=== PATIENT | male | born 1970 | race African-American/Black ===

== ENCOUNTER 2017-07-19 06:16 | Inpatient (IN) ==
[2017-07-19] MEDS ORDERED: Aspirin 81 MG TAB.CHEW PO ONE (06:37)
[2017-07-19] MEDS: Nitroglycerin 0.4 MG TAB.SUBL SL ONE ×3 (06:41→07:08)
[2017-07-19 06:54] LABS: Basophils # 0.1 K/mcL (0.0-0.2); Basophils % 0.9 %; Eosinophils # 0.3 K/mcL (0.0-0.6); Eosinophils % 6.2 %; Hematocrit 43.7 % (37.5-50.1); Hemoglobin 14.3 g/dL (12.9-16.9); Immature Granulocytes % 0.2 % (0-4); Lymphocytes # 1.5 K/mcL (0.6-4.6); Lymphocytes % 26.5 %; Mean Corpuscular HGB Conc 32.7 g/dL (31.6-35.5); Mean Corpuscular Hemoglobin 27.4 pg (28.0-33.3); Mean Corpuscular Volume 83.7 fL (83.0-100.0); Mean Platelet Volume 11.4 fL (9.4-12.4); Monocytes # 0.5 K/mcL (0.0-1.3); Monocytes % 9.6 %; Neutrophils # 3.1 K/mcL (1.6-8.9); Platelet Count 146 K/mcL (140-400); Red Blood Count 5.22 M/mcL (4.19-5.50); Red Cell Distribution Width 13.4 % (11.5-14.5); Segmented Neutrophils % 56.6 %
[2017-07-19 07:06] LABS: BUN/Creatinine Ratio 11 (6-26); Blood Urea Nitrogen 14 mg/dL (8-26); Calcium 8.9 mg/dL (8.6-10.8); Carbon Dioxide 18 mEq/L (19-29); Chloride 107 mEq/L (98-109); Glucose 125 mg/dL (70-99); Osmolality,Calculated 290 (280-300); Potassium 3.8 mEq/L (3.5-4.5); Sodium 139 mEq/L (136-145); eGFR For African Americans > 60 (> 60); eGFR For Non-African Americans > 60 (> 60)
--- NOTE | 2017-07-19 07:08 | Emergency Department Note ---
Disposition Clinical Impression: Hypertensive urgency Chest pain Qualifiers: Chest pain type: other chest pain Qualified Code(s): R07.89 - Other chest pain Cephalgia Qualifiers: Headache type: other complicated headache syndrome Qualified Code(s): G44.59 - Other complicated headache syndrome Disposition: Admitted As Inpatient Condition: Fair Time of Disposition: 11:49 Chest Pain HPI - General Chief Complaint: ED Chest Pain Stated Complaint: CP/SOB Time Seen by Provider: 07/19/17 06:36 Source: patient Limitations: no limitations Vital Signs Reviewed: Yes Nursing Notes Reviewed: Yes - History of Present Illness HPI Narrative: Mr. Hoff, 46-year-old male, presents from home for evaluation of chest pain. Onset 30 minutes prior to arrival. Described as substernal and left lower sternal chest pressure and heaviness with tingling radiating down his left arm and tightness on the left side of his throat. He has associated dyspnea. Several years ago, patient had an NJ with no stents placed. His symptoms today feel similar to that event. Patient's certified ophthalmic assistant is in [place]. Cardiac risk factors include hypertension, hyperlipidemia, "cardiomyopathy" of unknown variant, prior NJ Family history: Father from congestive heart failure. Severity scale (1-10): 10 - Related Data Home Medications Medication Instructions Recorded Confirmed Atorvastatin Calcium [Lipitor] 80 mg PO DAILY 07/19/17 07/19/17 Clopidogrel [Plavix] 75 mg PO DAILY 07/19/17 07/19/17 Cyclobenzaprine [Flexeril] 10 mg PO TID PRN 07/19/17 07/19/17 Esomeprazole Magnesium [Nexium] 40 mg PO DAILY 07/19/17 07/19/17 Hydralazine HCl 100 mg PO BID 07/19/17 07/19/17 Hydrochlorothiazide [Microzide] 12.5 mg PO DAILY 07/19/17 07/19/17 Labetalol HCl [Labetalol HCl] 400 mg PO BID 07/19/17 07/19/17 Losartan Potassium [Cozaar] 50 mg PO BID 07/19/17 07/19/17 NIFEdipine [Nifedipine ER] 60 mg PO BID 07/19/17 07/19/17 Oxycodone HCl 10 mg PO QID PRN 07/19/17 07/19/17 Zolpidem [Ambien] 10 mg PO HS 07/19/17 07/19/17 cloNIDine HCl [Clonidine HCl] 0.2 mg PO BID 07/19/17 07/19/17 Allergies Allergy/AdvReac Type Severity Reaction Status Date / Time Buspirone [From BuSpar] Allergy Hives Verified 07/19/17 06:21 diphenhydramine AdvReac Hallucinati Verified 07/19/17 06:21 [From Benadryl] ng All systems ED: reviewed and negative except as stated. Review of Systems: As Per HPI Chest Pain PMH - Past Medical History Medical history: Reports: cardiomyopathy, CVA, hypertension, myocardial infarction Psychiatric history: Reports: no psych history - Social History Smoking Status: Current every day smoker Alcohol use: Reports: none, rarely Drug use: Reports: none Physical Exam Vital Signs Reviewed General: Patient is alert, oriented, and in acute distress-his face is grimacing , he is holding his chest. HEENT: No facial asymmetry. Head is normocephalic and atraumatic. [place]romucosa moist. Trachea midline. Cardiovascular: Heart regular rate and rhythm without clicks, rubs, gallops, or murmurs. No JVD. PMI nondisplaced. Bilateral radial pulses 2/4 and equal. No pedal edema. Respiratory: Symmetric chest rise with good respiratory effort. Bilateral breath sounds are clear without wheezing, crackles, or rhonchi. Abdomen: Bowel sounds present normoactive x-4 quadrants. Abdomen is soft, nondistended, and nontender. Musculoskeletal: Spontaneously moving all extremities. Neuro: GCS 15. Alert and oriented 4. Skin: Cool, dry, intact. Psych: Patient's affect is appropriate for situation. - General Limitations: no limitations General appearance: alert, in no apparent distress Course Course Narrative: Patient received on sign out from the night team. He is high risk and has concerning story. 07:40 Discussed the patient with Dr. Mariam Corbin, on-call interventional cardiology. Discussed the patient's clinical condition, history, EKG changes. Will begin Reglan as a loading dose, ACS heparin, and relay the EKGs to her. Patient's pain is still 10/10 after initially starting the nitro drip. Will increase nitroglycerin as tolerated by his pressure. His pain is resistant to a milligram morphine as well as Dilaudid. Next Patient records received from [facility]. Myocardial nuclear perfusion test performed 06/13/2016: No pharmacologically induced reversible perfusion defects. Ejection fraction 55%. No focal wall motion abnormality. Echocardiogram of 01/25/17 shows moderate concentric left ventricular hypertrophy with normal left ventricular systolic function. EF 55-60%. Trace tricuspid regurgitation. I discussed the patient with the on-call certified ophthalmic assistant, Dr. Nakul Corbin. He recommends admission to medicine with cardiology following. Now the patient's blood pressure has come down to systolic low 160s with nitroglycerin drip, he advises initiation of heparin and Brilanta. I discussed the patient with the admitting hospitalist, Dr. Gonsalez, who agrees to accept the patient. Vital Signs Temperature 98.1 F 07/19/17 06:18 Pulse Rate 99 07/19/17 06:18 Respiratory Rate 20 07/19/17 06:18 Blood Pressure 239/165 07/19/17 06:18 O2 Sat by Pulse Oximetry 97 07/19/17 06:18 Temperature 98.2 F 07/19/17 11:45 Pulse Rate 76 07/19/17 11:45 Respiratory Rate 13 07/19/17 11:45 Blood Pressure 155/97 07/19/17 11:45 O2 Sat by Pulse Oximetry 99 07/19/17 11:45 Oxygen Delivery Oxygen Delivery Nasal Cannula Chest Pain - MDM Narrative Medical decision making narrative: This documentation is done with the assistance of [employer] dictation software. Though efforts have been made to ensure accuracy, there may be inaccuracies in exhaust machine operator or spelling or other typographical errors. I examined this patient and my medical decision-making was reviewed with the Resident Physician. I agree with the documented findings, disposition and treatment plan as described except to the extent set forth below. 46-year-old gentleman seen by myself and Dr. Herrmann, agree with his evaluation and management plan, I supervised the care of the patient that stay. Patient is with chest pain that started prior to arrival here. He says he does have history of cardiomyopathy stents and sees cardiology in [place]. He says he has extensive hypertension and takes 3 medications today. His systolic blood pressure here is of 200. He get a nitroglycerin trial with no relief. Starting IV nitroglycerin here. Something for pain and nausea then reassess to get a CT of his head EKG cardiac workup and will obviously need admission. He is in agreement with this plan. 0800 hrs.: Spoke with cardiology Dr. Corbin, she suggested to lower his blood pressure is nitrates as were doing. No Brelenta or heparin at this time. Will check on his CT of his head. Lab at this time. He will need admission once we get his labs back and reassess his pain in his overall condition. Chest X-Ray 07/19/17 06:37 IMPRESSION: No acute cardiopulmonary process. D/ / Jasson Burdick MD / Jasson Burdick MD Interpreting Provider: Jasson Burdick MD Head CT 07/19/17 07:10 IMPRESSION: No acute intracranial abnormality. D/ / Guera Schilling MD / Guera Schilling MD Interpreting Provider: Guera Schilling MD 0820 hrs.: CT and x-rays are negative. Trying to control his pain better and then admission. Hypertensive urgency. With chest pain. And cephalgia. 1000 hrs.: Patient's admitted to the floor under hospitalist and cardiology consult. Critical care time excluding any separately billable procedures is 50 minutes. - Lab Data Lab results reviewed: Yes I reviewed the patient's lab results. Result diagrams: 07/19/17 06:45 07/19/17 06:45 Lab Results 07/19/17 07/19/17 07/19/17 Range/Units 06:45 06:45 06:45 WBC 5.5 (4.3-11.1) K/mcL RBC 5.22 (4.19-5.50) M/mcL Hgb 14.3 (12.9-16.9) g/dL Hct 43.7 (37.5-50.1) % MCV 83.7 (83.0-100.0) fL MCH 27.4 L (28.0-33.3) pg MCHC 32.7 (31.6-35.5) g/dL RDW 13.4 (11.5-14.5) % Plt Count 146 (140-400) K/mcL MPV 11.4 (9.4-12.4) fL Immature Gran % 0.2 (0-4) % Seg Neutrophils % 56.6 % Lymphocytes % 26.5 % Monocytes % 9.6 % Eosinophils % 6.2 % Basophils % 0.9 % Neutrophils # 3.1 (1.6-8.9) K/mcL Lymphocytes # 1.5 (0.6-4.6) K/mcL Monocytes # 0.5 (0.0-1.3) K/mcL Eosinophils # 0.3 (0.0-0.6) K/mcL Basophils # 0.1 (0.0-0.2) K/mcL PT 10.4 (9.4-12.1) Seconds INR 1.0 APTT 30.8 (26.0-36.0) Seconds Sodium 139 (136-145) mEq/L Potassium 3.8 (3.5-4.5) mEq/L Chloride 107 (98-109) mEq/L Carbon Dioxide 18 L (19-29) mEq/L BUN 14 (8-26) mg/dL Creatinine 1.22 (0.72-1.25) mg/dL Est GFR ( Amer) > 60 (> 60) Est GFR (Non-Af Amer) > 60 (> 60) BUN/Creatinine Ratio 11 (6-26) Glucose 125 H (70-99) mg/dL Calculated Osmolality 290 (280-300) Calcium 8.9 (8.6-10.8) mg/dL Troponin I (0-0.03) ng/mL 07/19/17 Range/Units 06:45 WBC (4.3-11.1) K/mcL RBC (4.19-5.50) M/mcL Hgb (12.9-16.9) g/dL Hct (37.5-50.1) % MCV (83.0-100.0) fL MCH (28.0-33.3) pg MCHC (31.6-35.5) g/dL RDW (11.5-14.5) % Plt Count (140-400) K/mcL MPV (9.4-12.4) fL Immature Gran % (0-4) % Seg Neutrophils % % Lymphocytes % % Monocytes % % Eosinophils % % Basophils % % Neutrophils # (1.6-8.9) K/mcL Lymphocytes # (0.6-4.6) K/mcL Monocytes # (0.0-1.3) K/mcL Eosinophils # (0.0-0.6) K/mcL Basophils # (0.0-0.2) K/mcL PT (9.4-12.1) Seconds INR APTT (26.0-36.0) Seconds Sodium (136-145) mEq/L Potassium (3.5-4.5) mEq/L Chloride (98-109) mEq/L Carbon Dioxide (19-29) mEq/L BUN (8-26) mg/dL Creatinine (0.72-1.25) mg/dL Est GFR ( Amer) (> 60) Est GFR (Non-Af Amer) (> 60) BUN/Creatinine Ratio (6-26) Glucose (70-99) mg/dL Calculated Osmolality (280-300) Calcium (8.6-10.8) mg/dL Troponin I 0.03 (0-0.03) ng/mL - Radiology Data Radiology results reviewed: Yes I reviewed the patient's radiology results. Chest X-Ray 07/19/17 06:37 IMPRESSION: No acute cardiopulmonary process. D/ / Jasson Burdick MD / Jasson Burdick MD Interpreting Provider: Jasson Burdick MD Head CT 07/19/17 07:10 IMPRESSION: No acute intracranial abnormality. D/ / Guera Schilling MD / Guera Schilling MD Interpreting Provider: Guera Schilling MD - EKG Data EKG attestation: Yes I reviewed and interpreted this EKG. Heart Score - Score History: Highly Suspicious EKG: Significant ST-Depression Age: 45-65 Risk Factors: Equal/Greater than 3 risk factor or history of atherosclerotic disease Troponin: Less than normal limit HEART Score Total: 7
[2017-07-19] MEDS ORDERED: *HR* Morphine 2 MG/ML SYRINGE IVP ONE (07:14)
[2017-07-19] MEDS ORDERED: Ondansetron 4 MG/2 ML VIAL IVP ONE ×2 (07:14→08:24)
[2017-07-19] MEDS: Nitroglycerin 25 MG/250 ML INFUS..BTL IVC SCH (07:18)
[2017-07-19 07:25] LABS: Prothrombin Time 10.4 Seconds (9.4-12.1)
[2017-07-19 07:28] LABS: Activated Partial Thrombo Time 30.8 Seconds (26.0-36.0)
[2017-07-19] MEDS ORDERED: *HR* Ticagrelor 90 MG TABLET PO ONE (07:43)
[2017-07-19] MEDS ORDERED: *HR* Heparin 5,000 UNIT/ML VIAL IVP PRN ×2 (07:44)
[2017-07-19] MEDS ORDERED: *HR* Heparin 5,000 UNIT/ML VIAL IVP ONE (07:44)
[2017-07-19] MEDS ORDERED: Heparin 25,000 UNIT/500 ML D5W 25,000 UNIT/500 ML MLS IVC SCH (07:45)
[2017-07-19] MEDS ORDERED: *HR* HYDROmorphone (PF) 1 MG/ML SYRINGE IVP ONE (08:24)
[2017-07-19] MEDS ORDERED: *HR* Morphine 2 MG/ML SYRINGE IVP PRN (09:43)
[2017-07-19] MEDS ORDERED: Ondansetron 4 MG/2 ML VIAL IVP PRN (09:43)
--- NOTE | 2017-07-19 09:53 | Internal Med History&Physical ---
Date of Encounter: 07/19/17 Time of Encounter: 09:48 Assessment and Plan (1) Hypertensive urgency Current visit: Yes Status: Acute Patient presents with hypertensive urgency. He has resistant hypertension on 3 blood-pressure medications including a diuretic. Patient was started on nitroglycerin drip in the emergency room. Will continue target blood pressure will decrease by 15% the next 8 hours. That will be a target of 160/100. I will get CT Anio of the chest abdomen and pelvis to rule out aortic dissection. He had a prior coronary angiogram 2 years ago showed no occlusive disease. Patient is having headache with neck pain. He does have prior neck surgery. However he feels his neck pain is different from his chronic pain. I have discussed with the patient regarding culture which seems that he have had it before for similar reasons and he is not favoring it. He is on Plavix. I have also discussed the case with the neurologist and we decided to hold off LP for now and will get CT angiogram of the head to look for any aneurysm. CT scan of the head showed no evidence of subarachnoid bleed. Will trend serial troponin. EKG shows hypertensive EKG changes. I will hold off heparin drip for now given that his pain is more likely due to hypertension rather than acute coronary syndrome. (2) Cardiomyopathy Current visit: Yes Status: Acute Patient has a history of cardiomyopathy. We do not have records at our facility. But he mentioned that it was non- ischemic cardiomyopathy thought to be possibly related to chronic long-standing uncontrolled hypertension Qualifiers: Qualified Code(s): I42.9 - Cardiomyopathy, unspecified (3) Chronic kidney disease Current visit: Yes Status: Acute Patient has a history of chronic kidney disease stage III, stable. Qualifiers: Qualified Code(s): N18.9 - Chronic kidney disease, unspecified Internal Medicine - H&P: HPI Chief complaint: chest pain and headache History of present illness: Mr. oHff is a 46 year old male with a history of resistant hypertension on 3 blood-pressure medications including a diuretic presents to the emergency room today with the main complaint of chest pain and headache. 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 While he was driving this morning he started noticing chest pain in the retrosternal area radiating to left shoulder that has been persistent since it started half an hour prior to arrival to emergency room. He was found to have a systolic blood pressure of 200 and diastolic up to 120. He mentioned that he is compliant with his blood-pressure medications. Patient has also been experiencing headache as well as neck pain and blurry vision. He denied any focal weakness tingling numbness in any extremity facial symmetry or speech slurriness. He mentioned that had coronary angiogram 2 years ago showed no occlusive coronary artery disease. Past Med Surg Social Fam HX - Past Medical History Medical history: cardiomyopathy, CVA, hypertension, myocardial infarction Psychiatric history: no psych history - Social History Smoking Status: Current every day smoker Smokeless Tobacco Status: No Alcohol use: none, rarely Drug use: none Internal Medicine - H&P: Meds Atorvastatin Calcium [Lipitor] 80 mg PO DAILY 07/19/17 [History] Clopidogrel [Plavix] 75 mg PO DAILY 07/19/17 [History] Cyclobenzaprine [Flexeril] 10 mg PO TID PRN 07/19/17 [History] Esomeprazole Magnesium [Nexium] 40 mg PO DAILY 07/19/17 [History] Hydralazine HCl 100 mg PO BID 07/19/17 [History] Hydrochlorothiazide [Microzide] 12.5 mg PO DAILY 07/19/17 [History] Labetalol HCl [Labetalol HCl] 400 mg PO BID 07/19/17 [History] Losartan Potassium [Cozaar] 50 mg PO BID 07/19/17 [History] NIFEdipine [Nifedipine ER] 60 mg PO BID 07/19/17 [History] Oxycodone HCl 10 mg PO QID PRN 07/19/17 [History] Zolpidem [Ambien] 10 mg PO HS 07/19/17 [History] cloNIDine HCl [Clonidine HCl] 0.2 mg PO BID 07/19/17 [History] 3 Allergy/AdvReac Type Severity Reaction Status Date / Time Buspirone [From BuSpar] Allergy Hives Verified 07/19/17 06:21 diphenhydramine AdvReac Hallucinati Verified 07/19/17 06:21 [From Benadryl] ng All Systems PM: A 10-system review of systems was performed and is negative for pertinent findings except as documented above in the HPI. Review of systems: 10 point review of systems is negative except for HPI - Constitutional Vitals: Temp Pulse Resp BP Pulse Ox 98.1 F 85 20 161/112 96 07/19/17 06:18 07/19/17 09:25 07/19/17 09:25 07/19/17 09:25 07/19/17 09:25 Exam: Gen.: patient is alert oriented times 3 not in distress. Cardiac: normal S1 S2 no additional sounds or murmurs chest: clear to auscultation abdomen: soft nontender nondistended normal bowel sounds Neuro: no focal deficits Internal Med - H&P Results - Labs CBC & Chem 7: 07/19/17 06:45 07/19/17 06:45
[2017-07-19] MEDS ORDERED: *HR* HYDROmorphone 2 MG/ML SYRINGE IVP PRN (11:28)
[2017-07-19] MEDS: cloNIDine HCl 0.1 MG TABLET PO SCH ×2 (11:48→19:36)
--- NOTE | 2017-07-19 12:54 | Cardiology Consult Note ---
Date of Encounter: 07/19/17 Time of Encounter: 12:48 Assessment and Plan (1) Hypertensive urgency Current Visit: Yes Status: Acute Recommend aggressive BP control as you are doing. This may be etiology of pain. (2) Cardiomyopathy Current Visit: Yes Status: Acute Has apparent history but last echo in 01/2017 showed EF 55-60%. Qualifiers: Cardiomyopathy type: unspecified Qualified Code(s): I42.9 - Cardiomyopathy , unspecified (3) Chest pain Current Visit: Yes Status: Acute Uncertain etiology at this point. Would continue LEXIS. Control BP. He just remembered he had a heart cath last month, would request those records. Qualifiers: Chest pain type: other chest pain Qualified Code(s): R07.89 - Other chest pain; R07.8 - Other chest pain Discussion w patient/family: The assessment and plan as outlined above was discussed with the patient and/or family members who expressed understanding and agreement. All questions were answered. Thank you for involving us in the care of your patient. Please call with any questions. History of Present Illness Consult date: 07/19/17 Requesting physician: Jenaro Gonsalez Consult reason: Chest pain Chief complaint: Chest pain History of present illness: Mr. Hoff is a 46 year old male with a history of HTN and possible nonischemic cardiomyopathy who presents with headache and chest pain. Pain began early this AM, has no aggravating or relieving factors and has been continuous. Past Med Surg Social Fam HX - Past Medical History Medical history: cardiomyopathy, CVA, hypertension, myocardial infarction Psychiatric history: no psych history - Social History Smoking Status: Current every day smoker Smokeless Tobacco Status: No Alcohol use: none, rarely Drug use: none Medications and Allergies Atorvastatin Calcium [Lipitor] 80 mg PO DAILY 07/19/17 [History] Clopidogrel [Plavix] 75 mg PO DAILY 07/19/17 [History] Cyclobenzaprine [Flexeril] 10 mg PO TID PRN 07/19/17 [History] Esomeprazole Magnesium [Nexium] 40 mg PO DAILY 07/19/17 [History] Hydralazine HCl 100 mg PO BID 07/19/17 [History] Hydrochlorothiazide [Microzide] 12.5 mg PO DAILY 07/19/17 [History] Labetalol HCl [Labetalol HCl] 400 mg PO BID 07/19/17 [History] Losartan Potassium [Cozaar] 50 mg PO BID 07/19/17 [History] NIFEdipine [Nifedipine ER] 60 mg PO BID 07/19/17 [History] Oxycodone HCl 10 mg PO QID PRN 07/19/17 [History] Zolpidem [Ambien] 10 mg PO HS 07/19/17 [History] cloNIDine HCl [Clonidine HCl] 0.2 mg PO BID 07/19/17 [History] 3 Allergy/AdvReac Type Severity Reaction Status Date / Time Buspirone [From BuSpar] Allergy Hives Verified 07/19/17 06:21 diphenhydramine AdvReac Hallucinati Verified 07/19/17 06:21 [From Benadryl] ng All Systems Review: A 10-system review of systems was performed and is negative for pertinent findings except as documented above in the HPI. Physical Examination Vital Signs, Last 4 Hours Temp Pulse Resp BP Pulse Ox 07/19/17 11:45 98.2 F 76 13 155/97 99 07/19/17 10:04 98.3 F 79 15 156/109 97 General: Conversant, No Apparent Distress HEENT: Atraumatic, Normocephaly, Mucus Membranes Moist Neck: No JVD, Normal carotid pulses Cardiac: Reg Rate and Rhythm, Normal S1 and S2, No Murmur Lungs: Normal Breath Sounds, No Wheeze, Rales, Rhonchi Neuro: Alert and responsive, No focal deficits noted Abdomen: Soft, Non-Tender Skin: No rashes noted on visualized skin Musculoskeletal: No Chest Wall Tenderness (mild edema) Results 07/19/17 06:45 07/19/17 06:45 - EKG Interpretation EKG results cardiology: other (NSR, evidence of LVH with ST-T wave changes likely secondary) Consult Discharge Plan - Plan Referrals: Rafael Myles MD [Primary Care Provider] -
[2017-07-19 13:21] LABS: Hematocrit 39.2 % (37.5-50.1); Mean Corpuscular HGB Conc 32.4 g/dL (31.6-35.5); Mean Corpuscular Hemoglobin 27.5 pg (28.0-33.3); Mean Platelet Volume 10.9 fL (9.4-12.4); Platelet Count 131 K/mcL (140-400); Red Blood Count 4.61 M/mcL (4.19-5.50); Red Cell Distribution Width 13.6 % (11.5-14.5)
[2017-07-19 13:34] LABS: Hemoglobin 12.7 g/dL (12.9-16.9)
--- NOTE | 2017-07-19 13:57 | Neurology - Consult Note ---
Date of Encounter: 07/19/17 Time of Encounter: 13:51 Assessment and Plan (1) Hypertensive urgency Current Visit: Yes Status: Acute Patient mostly likely has symptoms related to hypertensive urgency. He has baseline headache and neck pain as a chronic condition, due to previous cervical spine surgery, chronic back pain and he has also been on narcotic pain meds. Current increasing headache and neck, per patient's reports are more severe but they are not associated with nausea, vomiting or mental status changes that would suggest intracranial hypertension. He has no significant nuchal rigidity but some baseline pain when flexion his neck, he is able to flex his neck and touching his chin to chest. He has been taking Ticargrelor therefore LP wont not be done per protocol. would advise CTA of brain and neck as discussed with Dr. Gonsalez. It is felt that the likelihood of SAH with negative CT of head and his clinical presentation is low. Recommend continuing medical and supportive care. if headaches/neck pain persist despite adequate medical treatment then LP can be done through interventional radiology. I will re-evaluate the patient at your request History of Present Illness Chief complaint: headache neck pain chest pain and elevated BP HPI: Mr. Hoff is a 46 year old male with PMH significant for refractory HTN, history of chronic neck pain, s/p cervical spine surgery who presented with HTN urgency, chest pain and headaches. He has history of neck surgery down 2014 and history of chronic back pain as well. He has baseline chronic head and neck pain as well. This morning the headaches and neck were more severe and he also developed chest pain. In the ER, he was found to have Blood pressure >200/ 100mmHg. CT of head showed no acute intracranial abnormality. N signs of cerebral bleeding. He however, related to the medical team that his neck pain was different. When inquired about what is the difference he says that it was more severe. Not nauseated though. He has been taking narcotic containing pain meds for his back pain. Currently, his blood pressure i 159/100. He states that his headaches and neck pain are not much better, but mental status is intact. He is not nauseated and not vomiting. Watching TV but appears is discomforts. Past Med Surg Social Fam HX - Past Medical History Medical history: cardiomyopathy, CVA, hypertension, myocardial infarction Psychiatric history: no psych history - Social History Smoking Status: Current every day smoker Smokeless Tobacco Status: No Alcohol use: none, rarely Drug use: none Medications and Allergies Atorvastatin Calcium [Lipitor] 80 mg PO DAILY 07/19/17 [History] Clopidogrel [Plavix] 75 mg PO DAILY 07/19/17 [History] Cyclobenzaprine [Flexeril] 10 mg PO TID PRN 07/19/17 [History] Esomeprazole Magnesium [Nexium] 40 mg PO DAILY 07/19/17 [History] Hydralazine HCl 100 mg PO BID 07/19/17 [History] Hydrochlorothiazide [Microzide] 12.5 mg PO DAILY 07/19/17 [History] Labetalol HCl [Labetalol HCl] 400 mg PO BID 07/19/17 [History] Losartan Potassium [Cozaar] 50 mg PO BID 07/19/17 [History] NIFEdipine [Nifedipine ER] 60 mg PO BID 07/19/17 [History] Oxycodone HCl 10 mg PO QID PRN 07/19/17 [History] Zolpidem [Ambien] 10 mg PO HS 07/19/17 [History] cloNIDine HCl [Clonidine HCl] 0.2 mg PO BID 07/19/17 [History] 3 Allergy/AdvReac Type Severity Reaction Status Date / Time Buspirone [From BuSpar] Allergy Hives Verified 07/19/17 06:21 diphenhydramine AdvReac Hallucinati Verified 07/19/17 06:21 [From Benadryl] ng All Systems: A 10-system review of systems was performed and is negative for pertinent findings except as documented above in the HPI. Physical Examination - Vital Signs Vital Signs: Initial Vital Signs Temp Pulse Resp BP Pulse Ox 98.1 F 99 20 239/165 97 07/19/17 06:18 07/19/17 06:18 07/19/17 06:18 07/19/17 06:18 07/19/17 06:18 - Constitutional General appearance: uncomfortable - Neurologic Detailed motor examination: full strength in all major muscle groups Motor examination - right side: 5/5: deltoids, biceps, triceps, wrist flexion, wrist extension, experimental physicist, hip flexors, tibialis Anterior, quadriceps, toe extension (EHL), plantarflexion Motor examination - left side: 5/5: deltoids, biceps, triceps, wrist flexion, wrist extension, hip flexors, experimental physicist, quadriceps, tibialis Anterior, toe extension (EHL), plantarflexion Detailed sensory examination: intact Posture: other (None) Reflex and gait examination: other (gait not assessed due to ongoing headache and neck pain) Reflexes: Biceps: 2+, Triceps: 2+, Brachioradialis: 2+, Patella: 2+, Achilles: 2 + Mental Status Examination: awake, alert, oriented to person, oriented to place, oriented to time, follows commands appropriately, answers questions appropriately, no agnosia, no aphasia, no aproxia Cranial nerve examination: PERRL, EOMI, visual ovalle intact, corneal reflexes brisk symmetrically, sensory to face intact, mastication intact, no facial asymmetry is present, no dysarthria, hearing is intact symmetrically, soft palate elevates bilaterally upon phonation, gag reflex intact, flexes SCM and trapezius muscles symmetrically with full power, tongue protrudes midline, no atrophy or facial fasiculations present Cerebellar examination: no dysmetria, performs finger to nose and heel to keita symmetrically without ataxia, no gait ataxia, no truncal ataxia, no difficulty with rapid alternating movements Results - Laboratory Findings CBC and BMP: 07/19/17 06:45 07/19/17 06:45 Abnormal lab findings: Abnormal lab results MCH 27.4 pg (28.0-33.3) L 07/19/17 06:45 Carbon Dioxide 18 mEq/L (19-29) L 07/19/17 06:45 Glucose 125 mg/dL (70-99) H 07/19/17 06:45 Creatine Kinase 243 Units/L (30-200) H 07/19/17 13:13 Consult Discharge Plan - Plan Referrals: Rafael Myles MD [Primary Care Provider] -
[2017-07-19] MEDS: *HR* HYDROmorphone 2 MG/ML SYRINGE IVP PRN ×2 (15:49→19:36)
[2017-07-20] MEDS: *HR* HYDROmorphone 2 MG/ML SYRINGE IVP PRN ×7 (00:01→22:40)
[2017-07-20] MEDS: Nitroglycerin 25 MG/250 ML INFUS..BTL IVC SCH ×2 (00:21→13:29)
[2017-07-20 04:15] LABS: Basophils % 0.5 %; Eosinophils # 0.3 K/mcL (0.0-0.6); Eosinophils % 4.3 %; Hematocrit 37.5 % (37.5-50.1); Hemoglobin 11.8 g/dL (12.9-16.9); Immature Granulocytes % 0.2 % (0-4); Lymphocytes # 1.1 K/mcL (0.6-4.6); Lymphocytes % 18.4 %; Mean Corpuscular HGB Conc 31.5 g/dL (31.6-35.5); Mean Corpuscular Hemoglobin 27.3 pg (28.0-33.3); Mean Corpuscular Volume 86.6 fL (83.0-100.0); Mean Platelet Volume 11.3 fL (9.4-12.4); Monocytes # 0.7 K/mcL (0.0-1.3); Monocytes % 11.1 %; Platelet Count 115 K/mcL (140-400); Red Blood Count 4.33 M/mcL (4.19-5.50); Red Cell Distribution Width 13.6 % (11.5-14.5); Segmented Neutrophils % 65.5 %
[2017-07-20 04:37] LABS: Magnesium 1.7 mg/dL (1.6-2.6)
[2017-07-20] MEDS: Aspirin 81 MG TAB.CHEW PO SCH (07:49)
[2017-07-20] MEDS: cloNIDine HCl 0.1 MG TABLET PO SCH ×2 (07:49→19:40)
[2017-07-20] MEDS: NIFEdipine XL (24 HR) 60 MG TAB.ER.24 PO SCH ×2 (11:22→19:40)
[2017-07-20] MEDS: hydrALAZINE 25 MG TABLET PO SCH ×2 (11:22→19:40)
--- NOTE | 2017-07-20 11:33 | Internal Med Progress Note ---
Date of Encounter: 07/20/17 Time of Encounter: 11:31 - Assessment and plan (1) Cephalgia Current Visit: Yes Status: Acute Assessment and plan: Likely related to hypertensive urgency. CT head showed no acute bleed. Blood pressure is currently well controlled, patient continues to have some headache, which could be related to IV nitroglycerin drip. We will hold nitroglycerin and continue to monitor. Pain control and supportive care. Neurology consult recommended CT angiogram of head and neck for persistent headache, however patient's renal function is noted to be worsening and he just had a CT angiogram of chest and abdomen yesterday, will try to avoid further contrast unless necessary. Qualifiers: Headache type: other complicated headache syndrome Qualified Code(s): G44.59 - Other complicated headache syndrome (2) Hypertensive urgency Current Visit: Yes Status: Acute Assessment and plan: Blood pressure improving. We will wean down and discontinue IV nitroglycerin drip. We will resume home medications, beta luisa, clonidine, nifedipine and hydralazine. We will hold ARB and diuretic due to renal dysfunction. Low- sodium diet. (3) Cardiomyopathy Current Visit: Yes Status: Chronic Assessment and plan: History of nonischemic cardiomyopathy, per patient. Cardiology consult appreciated. Echocardiogram from January 2017 showed improved ejection fraction per cardiology notes. Patient also underwent left heart catheterization at [facility] in May 2017, which showed normal coronary angiogram. Continue telemetry monitoring and beta luisa at this time. Qualifiers: Cardiomyopathy type: unspecified Qualified Code(s): I42.9 - Cardiomyopathy , unspecified (4) Chronic kidney disease Current Visit: Yes Status: Chronic Assessment and plan: Patient is noted to have chronic kidney disease stage III likely due to hypertensive disease. Serum creatinine noted to be worsening, 1.6 today likely related to the use of recent IV contrast. Continue to monitor closely. Qualifiers: Chronic kidney disease stage: stage 3 (moderate) Qualified Code(s): N18.3 - Chronic kidney disease, stage 3 (moderate) - Subjective Interval history: Continues to report headache, neck pain and chest pain; no dyspnea, nausea, vomiting; does report some blurred vision; noted to be on IV Nitro drip; - Constitutional Vitals: Temp Pulse Resp BP Pulse Ox 98.4 F 77 16 140/108 99 07/20/17 07:50 07/20/17 07:50 07/20/17 07:50 07/20/17 07:50 07/20/17 07:50 General appearance: Present: mild distress, A&O X 3, obese, answers questions appropriately - Respiratory Respiratory exam: Present: CTAB. Absent: accessory muscle use, rales, rhonchi, wheezes - Cardiovascular Cardiovascular exam: Present: RRR, +S1, +S2. Absent: diastolic murmur, gallop, rubs, systolic murmur - GI/Abdominal GI/Abdominal exam: Present: normal bowel sounds, soft, no peritoneal signs. Absent: distended, tenderness - Extremities Exam Extremities exam: Present: full ROM, warm, radial pulses palpable and symmetrical. Absent: calf tenderness, cyanotic, pedal edema - Neurological Exam Neurological exam: Present: CN II-XII intact, oriented X3, no focal deficits. Absent: pronater drift, facial droop, speech deficit Internal Medicine: Result - Labs CBC & Chem 7: 07/20/17 03:45 07/20/17 03:45 Labs: Short CBC 07/19/17 07/20/17 Range/Units 13:13 03:45 WBC 4.8 6.0 (4.3-11.1) K/mcL Hgb 12.7 L D 11.8 L (12.9-16.9) g/dL Hct 39.2 37.5 (37.5-50.1) % Plt Count 131 L 115 L (140-400) K/mcL Neutrophils # 4.0 (1.6-8.9) K/mcL BMP 07/20/17 03:45 Sodium 138 Potassium 4.0 Chloride 109 Carbon Dioxide 23 BUN 19 Creatinine 1.66 H Glucose 109 H Calcium 8.0 L Cardiac Enzymes 07/19/17 07/19/17 Range/Units 13:13 18:45 Troponin I 0.03 0.03 (0-0.03) ng/mL - ABG Interpretation ABG results: PT/INR, D-dimer PT 10.4 Seconds (9.4-12.1) 07/19/17 06:45 - Impressions Impressions Head CT 07/19/17 10:03 IMPRESSION: No acute intracranial abnormality. D/ / Mark Gutiérrez MD / Mark Gutiérrez MD Interpreting Provider: Mark Gutiérrez MD - VTE Documentation of Mechanical Device: Intermittent pneumatic compression device Consult Discharge Plan - Plan Referrals: Rafael Myles MD [Primary Care Provider] -
--- NOTE | 2017-07-20 12:03 | Event Note ---
Date of Encounter: 07/20/17 Time of Encounter: 11:30 - Cardiology Event Note [facility] records reviewed from outside facility [facility] June 06, 2017 showed normal coronary angiogram. Reviewed and discussed with Dr. 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 Recommend optimize BP control, wean off IV Cardizem gtt. All questions answered. Patient verbalized understanding and agreed with plan.
[2017-07-21] MEDS: *HR* HYDROmorphone 2 MG/ML SYRINGE IVP PRN ×3 (00:52→10:02)
[2017-07-21] MEDS: Nitroglycerin 25 MG/250 ML INFUS..BTL IVC SCH (04:53)
[2017-07-21] MEDS: NIFEdipine XL (24 HR) 60 MG TAB.ER.24 PO SCH (07:24)
[2017-07-21] MEDS: cloNIDine HCl 0.1 MG TABLET PO SCH (07:24)
[2017-07-21] MEDS: Aspirin 81 MG TAB.CHEW PO SCH (07:24)
[2017-07-21] MEDS: hydrALAZINE 25 MG TABLET PO SCH (07:24)
[2017-07-21 11:20] VITALS: BP 108/96
[2017-07-21] MEDS ORDERED: *HR* OxyCODONE/APAP 5/325 TABLET PO PRN (12:02)
[2017-07-21 12:26] LABS: Hematocrit 37.9 % (37.5-50.1); Hemoglobin 12.3 g/dL (12.9-16.9); Mean Corpuscular HGB Conc 32.5 g/dL (31.6-35.5); Mean Corpuscular Hemoglobin 27.4 pg (28.0-33.3); Mean Corpuscular Volume 84.4 fL (83.0-100.0); Mean Platelet Volume 11.5 fL (9.4-12.4); Platelet Count 130 K/mcL (140-400); Red Blood Count 4.49 M/mcL (4.19-5.50); Red Cell Distribution Width 13.5 % (11.5-14.5)
[2017-07-21 12:37] LABS: BUN/Creatinine Ratio 14 (6-26); Blood Urea Nitrogen 17 mg/dL (8-26); Calcium 8.5 mg/dL (8.6-10.8); Carbon Dioxide 23 mEq/L (19-29); Chloride 108 mEq/L (98-109); Glucose 99 mg/dL (70-99); Osmolality,Calculated 290 (280-300); Potassium 3.9 mEq/L (3.5-4.5); Sodium 139 mEq/L (136-145); eGFR For African Americans > 60 (> 60); eGFR For Non-African Americans > 60 (> 60)
[2017-07-21 12:55] LABS: Eosinophils # 0.4 K/mcL (0.0-0.6); Lymphocytes # 1.7 K/mcL (0.6-4.6); Monocytes # 0.4 K/mcL (0.0-1.3)
[2017-07-21 12:56] LABS: Platelet Estimate Normal (Normal)
--- NOTE | 2017-07-21 13:48 | Discharge Summary ---
Date of Encounter: 07/21/17 Time of Encounter: 10:30 - Discharge Diagnosis (1) Cephalgia Priority: Primary Status: Acute Qualifiers: Headache type: other complicated headache syndrome Qualified Code(s): G44.59 - Other complicated headache syndrome (2) Hypertensive urgency Priority: Primary Status: Acute (3) Cardiomyopathy Priority: Secondary Status: Chronic Qualifiers: Cardiomyopathy type: unspecified Qualified Code(s): I42.9 - Cardiomyopathy , unspecified (4) Chronic kidney disease Priority: Secondary Status: Chronic Qualifiers: Chronic kidney disease stage: stage 3 (moderate) Qualified Code(s): N18.3 - Chronic kidney disease, stage 3 (moderate) - Discharge Medications Home Medications: Atorvastatin Calcium [Lipitor] 80 mg PO DAILY 07/19/17 [History] Clopidogrel [Plavix] 75 mg PO DAILY 07/19/17 [History] Cyclobenzaprine [Flexeril] 10 mg PO TID PRN 07/19/17 [History] Esomeprazole Magnesium [Nexium] 40 mg PO DAILY 07/19/17 [History] Hydralazine HCl 100 mg PO BID 07/19/17 [History] Hydrochlorothiazide [Microzide] 12.5 mg PO DAILY 07/19/17 [History] Labetalol HCl 400 mg PO BID 07/19/17 [History] Losartan Potassium [Cozaar] 50 mg PO BID 07/19/17 [History] NIFEdipine [Nifedipine ER] 60 mg PO BID 07/19/17 [History] Oxycodone HCl 10 mg PO QID PRN 07/19/17 [History] Zolpidem [Ambien] 10 mg PO HS 07/19/17 [History] cloNIDine HCl [Clonidine HCl] 0.2 mg PO BID 07/19/17 [History] Allergies/Adverse Reactions: 3 Allergy/AdvReac Type Severity Reaction Status Date / Time Buspirone [From BuSpar] Allergy Hives Verified 07/19/17 06:21 diphenhydramine AdvReac Hallucinati Verified 07/19/17 06:21 [From Benadryl] ng Procedures/tests Complete & Pending: Procedures Performed prior 72 hours Category Date Time Status CT head/brain w con [CT] Stat Cat Scan 07/19/17 10:03 Completed ECG 12 lead ECG [ECG] Routine Y 07/19/17 07:20 Completed ECG 12 lead ECG [ECG] Routine Y 07/19/17 12:02 Completed Date of admission: 07/19/17 09:43 Primary care physician: Rafael Myles Consults: 07/19/17 09:45 Consult to Cardiology [CONS] Routine Comment: Consulting Provider: Felicitas Mello Reason for Consult: hypertensive urgency Call Completed: Yes Discharging clinician: Soraida Almodovar Anticipated date of discharge: 07/21/17 - Patient Status Disposition: Home, Self-Care Condition: Fair Functional capacity at discharge: independent ambulation Overall status at discharge: patient is progressing back to baseline - Discharge Instructions Follow Up With: Rafael Myles MD [Primary Care Provider] - 07/29/17 10:30 am Forms: ED Satisfaction Letter - Diet and Activity Activity: resume usual activities as tolerated Diet: low fat, low cholesterol, low salt diet Hospital course: Mr. Hoff is a 46 year old male - Time Spent with Patient Total time spent providing and/or coordinating discharge services: Greater than 30 minutes (45 min) - Constitutional Vitals: Temp Pulse Resp BP Pulse Ox 98.0 F 73 20 108/96 94 07/21/17 11:16 07/21/17 11:16 07/21/17 11:16 07/21/17 11:16 07/21/17 11:16 General appearance: Present: A&O X 3, obese, answers questions appropriately - Cardiovascular Cardiovascular exam: Present: RRR, +S1, +S2. Absent: diastolic murmur, gallop, rubs, systolic murmur - VTE Documentation of Mechanical Device: Intermittent pneumatic compression device
[2017-07-21] MEDS ORDERED: FLUARIX QUAD 2017-18 36MOS UP/PF 0.5 ML SYRINGE IM ONE (14:08)
[2017-07-22 20:11] LABS: CK-BB (CK isoenzymes) 1 % (0-0); CK-MB (CK isoenzymes) 0 % (0-4); CK-MM (CK-isoenzymes) 99 % (96-100)
[2017-07-22 20:11] LABS: CK-BB (CK isoenzymes) 0 % (0-0); CK-MB (CK isoenzymes) 0 % (0-4); CK-MM (CK-isoenzymes) 100 % (96-100)
--- NOTE | 2017-07-22 22:36 | Electrocardiograph Report ---
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
--- NOTE | 2017-07-22 22:37 | Electrocardiograph Report ---
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
--- NOTE | 2017-07-22 22:42 | Electrocardiograph Report ---
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
[2017-07-23 08:34] LABS: CK Total (Ck Isoenzymes) 245 U/L (20-200)
[2017-07-23 08:34] LABS: CK Total (Ck Isoenzymes) 229 U/L (20-200)
== END 2017-07-21 15:26 | disposition home or self-care (01) | DRG 305 ==
LOC: 2NNU 06:16 → EMEROO 06:16 → SUATTDRO 09:43 → 2NNU 09:59
PROVIDERS: ADMIT Hospitalist; ATTEND Internal Medicine